=== PATIENT | female | born 1990 | race Caucasian/White ===

== ENCOUNTER 2019-07-31 03:56 | Emergency (ER) | payer BC ==
[~2019-07-31] VITALS: Ht 167.6 cm; Wt 85.6 kg
[2019-07-31] MEDS ORDERED: SODIUM CHLORIDE 0.9% 1,000 ML IV ONE (04:06)
--- NOTE | 2019-07-31 04:16 | NUR ---
Bill from [facility] contacted and states he will come in
[2019-07-31] MEDS ORDERED: ONDANSETRON 2MG/ML, 2ML ONE (04:19)
--- NOTE | 2019-07-31 04:24 | NUR ---
ASSESSMENT MADE. SEEN BY ERP. IV PLACED. MEDICATED FOR NAUSEA. IVF JOSE A.
[2019-07-31] MEDS ORDERED: SODIUM CHLORIDE FLUSH 10ML SYR IVF ONE (04:30)
[2019-07-31] MEDS ORDERED: PROPOFOL 10 MG/ML, 20ML IVPush ONE ×2 (04:30→05:30)
[2019-07-31] MEDS ORDERED: ONDANSETRON 2MG/ML, 2ML IVPush ONE (04:30)
[2019-07-31] MEDS ORDERED: PROPOFOL 10 MG/ML, 20ML ONE ×2 (04:41→04:58)
--- NOTE | 2019-07-31 04:45 | NUR ---
CONSENT SIGNED. AWAITING ENDO TEAM.
--- NOTE | 2019-07-31 04:55 | NUR ---
GI MD AT BEDSIDE. EGD STARTED. ERP AT BEDSIDE FOR SEDATION.
--- NOTE | 2019-07-31 05:01 | NUR ---
PROCEDURE DONE. PATIENT STILL SEDATED. VSS
--- NOTE | 2019-07-31 05:55 | NUR ---
PATIENT AWAKE AND ALERT. VSS. DISCHARGED WITH PRESCRIPTIONS AND INSTRUCTION. VERBALIZED UNDERSTANDING.
[2019-07-31 05:56] VITALS: BP 97/63
== END 2019-07-31 05:58 | disposition home or self-care (01) ==
LOC: ED 05:27
DX: T18.128A Food in esophagus causing other injury, initial encounter (principal); J02.9 Acute pharyngitis, unspecified; R94.31 Abnormal electrocardiogram [ECG] [EKG]; X58.XXXA Exposure to other specified factors, initial encounter; Y93.89 Activity, other specified; Y92.89 Other specified places as the place of occurrence of the external cause; Y99.8 Other external cause status
CPT/HCPCS: 43247; 93005; 96374; 99285; J2405; J2704; J7030